=== PATIENT | male | born 1955 | race Two or more races ===

== ENCOUNTER 2022-07-10 12:11 | Inpatient (IN) | payer OTHER ==
[~2022-07-10] VITALS: Ht 167.6 cm; Wt 87.2 kg
[2022-07-10] MEDS ORDERED: ASPirin 325 MG TAB PO ONE (12:15)
[2022-07-10 12:50] LABS: Basophils # (auto) 0.1 10 ^3/uL (0-0.2); Basophils % (auto) 0.9 % (0.0-2.0); Eosinophils # (auto) 0.3 10 ^3/uL (0-0.8); Eosinophils % (auto) 3.9 % (0.0-7.0); Hematocrit 44.1 % (41.0-53.0); Hemoglobin 14.3 g/dL (13.5-17.5); Lymphocytes # (auto) 2.9 10 ^3/uL (0.4-5.4); Lymphocytes % (auto) 38.8 % (10.0-50.0); Mean Corpuscular Hemoglobin 28.5 pg (28.0-32.0); Mean Corpuscular Hgb Conc. 32.3 g/dL (32.0-36.0); Mean Corpuscular Volume 88.1 fL (80.0-100.0); Monocytes # (auto) 0.6 10 ^3/uL (0-1.3); Monocytes % (auto) 8.2 % (0.0-12.0); Neutrophils # (auto) 3.5 10 ^3/uL (1.6-8.6); Neutrophils % (auto) 48.2 % (37.0-80.0); Nucleated Red Blood Cells % 0.1 %; Red Blood Cells 5.01 10^6/uL (4.5-5.90); Red Cell Distribution Width 14.2 % (11.8-14.3); White Blood Cell 7.4 10^3/uL (4.4-10.8)
[2022-07-10] MEDS ORDERED: NITROGLYCERIN 0.4 MG SL TAB SL ONE (13:00)
[2022-07-10 13:09] LABS: Albumin 3.8 g/dL (3.4-5.0); Calcium 8.5 mg/dL (8.5-10.1); Potassium 4.4 mmol/L (3.5-5.1)
[2022-07-10 13:11] LABS: BUN/Creatinine Ratio 17.4
[2022-07-10 13:13] LABS: Bilirubin, Total 0.5 mg/dL (0.2-1.0); Total Protein 7.3 g/dL (6.4-8.2)
[2022-07-10] MEDS ORDERED: ONDANSETRON HCL 4 MG/2 ML VIAL IV PRN ×2 (14:30→16:30)
[2022-07-10] MEDS ORDERED: NITROGLYCERIN 0.4 MG SL TAB SL PRN ×3 (14:30→17:45)
[2022-07-10] MEDS ORDERED: MORPHINE SULFATE INJ 2 MG/ml SYRG IV PRN ×3 (14:30→14:45)
[2022-07-10] MEDS ORDERED: MORPHINE SULFATE 4 MG/ML SYR/VIAL IV PRN (16:30)
[2022-07-10] MEDS ORDERED: PRAVASTATIN SODIUM 20 MG TAB PO SCH (22:00)
[2022-07-10] MEDS ORDERED: METOPROLOL TARTRATE 25 MG TAB PO SCH (22:00)
[2022-07-11 03:30] LABS: Basophils # (auto) 0 10 ^3/uL (0-0.2); Basophils % (auto) 0.7 % (0.0-2.0); Eosinophils # (auto) 0.3 10 ^3/uL (0-0.8); Eosinophils % (auto) 4.8 % (0.0-7.0); Hematocrit 39.6 % (41.0-53.0); Lymphocytes # (auto) 2.4 10 ^3/uL (0.4-5.4); Lymphocytes % (auto) 36.5 % (10.0-50.0); Mean Corpuscular Hemoglobin 28.8 pg (28.0-32.0); Mean Corpuscular Volume 87.3 fL (80.0-100.0); Monocytes # (auto) 0.6 10 ^3/uL (0-1.3); Monocytes % (auto) 9.1 % (0.0-12.0); Neutrophils # (auto) 3.2 10 ^3/uL (1.6-8.6); Neutrophils % (auto) 48.9 % (37.0-80.0); Red Blood Cells 4.53 10^6/uL (4.5-5.90); Red Cell Distribution Width 14.2 % (11.8-14.3); White Blood Cell 6.5 10^3/uL (4.4-10.8)
[2022-07-11 03:43] LABS: Albumin 3.4 g/dL (3.4-5.0); Calcium 8.1 mg/dL (8.5-10.1); Potassium 4.2 mmol/L (3.5-5.1)
[2022-07-11 03:44] LABS: BUN/Creatinine Ratio 21.5
[2022-07-11 03:47] LABS: Bilirubin, Total 0.5 mg/dL (0.2-1.0); Total Protein 6.4 g/dL (6.4-8.2)
[2022-07-11 06:23] VITALS: BP 130/74
[2022-07-11] MEDS ORDERED: PRAV20TA3 PO (09:15)
[2022-07-11] MEDS ORDERED: ASPI-325 PO (09:15)
[2022-07-11] MEDS ORDERED: MET25T PO (09:15)
[2022-07-11] MEDS ORDERED: ASPirin 81 mg TAB PO SCH (10:00)
== END 2022-07-11 09:48 | disposition home or self-care (01) | DRG 313 ==
LOC: ER 12:13 → TELE 16:28
PROVIDERS: ADMIT Internal Medicine; ATTEND Internal Medicine
DX: R07.89 Other chest pain (principal); E78.00 Pure hypercholesterolemia, unspecified; E66.9 Obesity, unspecified; I10 Essential (primary) hypertension; R73.03 Prediabetes; Z20.822 Contact with and (suspected) exposure to COVID-19; Z68.31 Body mass index [BMI] 31.0-31.9, adult; Z85.038 Personal history of other malignant neoplasm of large intestine
CPT/HCPCS: 36415; 71045; 80053; 83880; 84484; 85025; 87426; 93005; G0378

== ENCOUNTER 2023-03-22 07:07 | Emergency (ER) | payer OTHER, MEDICAID ==
[~2023-03-22] VITALS: Ht 165.1 cm; Wt 89.0 kg
[~2023-03-22 07:07] MED LIST: ASPI-325 PO; MET25T PO; PRAV20TA3 PO
[2023-03-22] MEDS ORDERED: CARI250T PO (09:00)
[2023-03-22] MEDS ORDERED: KETOROLAC TROMETH 60MG/2ML VIAL IM ONE (09:15)
[2023-03-22] MEDS ORDERED: cloNIDine HCL 0.1 MG TAB PO ONE (09:15)
[2023-03-22] MEDS ORDERED: CARISOPRODOL 350 MG TAB PO ONE (09:15)
[2023-03-22 10:28] VITALS: BP 137/78
== END 2023-03-22 10:59 | disposition home or self-care (01) ==
LOC: ER 07:07
DX: S33.5XXA Sprain of ligaments of lumbar spine, initial encounter (principal); M54.59 Other low back pain; I10 Essential (primary) hypertension; Z79.899 Other long term (current) drug therapy; Z79.02 Long term (current) use of antithrombotics/antiplatelets; W18.39XA Other fall on same level, initial encounter; Y93.89 Activity, other specified; Y92.89 Other specified places as the place of occurrence of the external cause; Y99.8 Other external cause status
CPT/HCPCS: 72131; 74176; 96372; 99285; J1885

== ENCOUNTER 2023-06-14 23:24 | Emergency (ER) | payer OTHER, MEDICAID ==
[~2023-06-14] VITALS: Ht 170.2 cm; Wt 86.0 kg
[~2023-06-14 23:24] MED LIST changes: +CARI250T PO
[2023-06-14 23:48] VITALS: BP 163/85; PULSE 83; RESP 20; O2SAT 98
== END 2023-06-15 03:43 | disposition left against medical advice (07) ==
LOC: ER 23:24
DX: M25.512 Pain in left shoulder (principal); Z53.21 Procedure and treatment not carried out due to patient leaving prior to being seen by health care provider
CPT/HCPCS: 73030

== ENCOUNTER 2023-07-12 12:56 | Emergency (ER) | payer OTHER, MEDICAID ==
[~2023-07-12] VITALS: Ht 170.2 cm; Wt 87.0 kg
[2023-07-12 14:45] VITALS: BP 135/81; PULSE 87; RESP 18; TEMP 97.5; O2SAT 96
[2023-07-12] MEDS ORDERED: HYDROcodone-ACET 10/325MG TAB PO ONE (14:45)
[2023-07-12] MEDS ORDERED: KETOROLAC TROMETH 60MG/2ML VIAL IM ONE (14:45)
[2023-07-12] MEDS ORDERED: HYDR-4798 PO (16:05)
[2023-07-12] MEDS ORDERED: IBUP-1455 PO (16:05)
== END 2023-07-12 16:19 | disposition home or self-care (01) ==
LOC: ER 12:56
DX: M12.811 Other specific arthropathies, not elsewhere classified, right shoulder (principal); M23.92 Unspecified internal derangement of left knee
CPT/HCPCS: 96372; 99283; J1885

== ENCOUNTER 2023-10-19 04:08 | Emergency (ER) | payer OTHER, MEDICAID ==
[~2023-10-19] VITALS: Ht 170.2 cm; Wt 91.0 kg
[~2023-10-19 04:08] MED LIST changes: +HYDR-4798 PO; +IBUP-1455 PO
[2023-10-19] MEDS ORDERED: KETOROLAC TROMETH 30 MG/ML 1ML VIAL IM ONE (06:45)
[2023-10-19 08:04] VITALS: TEMP 97.8
[2023-10-19 08:47] VITALS: BP 135/87; PULSE 71; RESP 15; O2SAT 95
[2023-10-19] MEDS ORDERED: NABU-72 PO (09:07)
[2023-10-19] MEDS ORDERED: METH-1181 PO (09:07)
[2023-10-19] MEDS ORDERED: PRED20TA2 PO (09:07)
== END 2023-10-19 09:17 | disposition home or self-care (01) ==
LOC: ER 04:08
DX: M25.512 Pain in left shoulder (principal); R07.81 Pleurodynia; M19.012 Primary osteoarthritis, left shoulder; I10 Essential (primary) hypertension; Z79.1 Long term (current) use of non-steroidal anti-inflammatories (NSAID); Z79.82 Long term (current) use of aspirin; Z79.899 Other long term (current) drug therapy
CPT/HCPCS: 71101; 73030; 96372; 99284; J1885

== ENCOUNTER 2024-04-19 01:27 | Emergency (ER) | payer OTHER, MEDICAID ==
[~2024-04-19] VITALS: Ht 167.6 cm; Wt 87.0 kg
[~2024-04-19 01:27] MED LIST changes: +METH-1181 PO; +NABU-72 PO; +PRED20TA2 PO
[2024-04-19 02:04] LABS: Basophils # (auto) 0.1 10 ^3/uL (0-0.2); Basophils % (auto) 0.6 % (0.0-2.0); Eosinophils # (auto) 0.2 10 ^3/uL (0-0.8); Eosinophils % (auto) 1.9 % (0.0-7.0); Hematocrit 41.3 % (41.0-53.0); Hemoglobin 14.1 g/dL (13.5-17.5); Lymphocytes # (auto) 3.4 10 ^3/uL (0.4-5.4); Lymphocytes % (auto) 31.2 % (10.0-50.0); Mean Corpuscular Hemoglobin 29.3 pg (28.0-32.0); Mean Corpuscular Hgb Conc. 34.1 g/dL (32.0-36.0); Mean Corpuscular Volume 85.7 fL (80.0-100.0); Monocytes # (auto) 0.9 10 ^3/uL (0-1.3); Monocytes % (auto) 8.3 % (0.0-12.0); Neutrophils # (auto) 6.3 10 ^3/uL (1.6-8.6); Red Blood Cells 4.82 10^6/uL (4.5-5.90); White Blood Cell 10.9 10^3/uL (4.4-10.8)
[2024-04-19 02:14] LABS: Alanine Aminotransferase 28 U/L (7-40); Albumin 4.5 g/dL (3.2-4.8); Alkaline Phosphatase 60 U/L (46-116); Anion Gap 8 (5-15); Aspartate Aminotransferase 11 U/L (13-40); BUN/Creatinine Ratio 14.3 (10.0-20.0); Bilirubin, Total 0.5 mg/dL (0.2-1.0); Blood Urea Nitrogen 10 mg/dL (9-23); Calcium 9.6 mg/dL (8.7-10.4); Carbon Dioxide 23 mmol/L (20-30); Chloride 103 mmol/L (98-107); Glucose 203 mg/dL (74-106); Potassium 4.3 mmol/L (3.5-5.1); Sodium 134 mmol/L (136-145)
[2024-04-19] MEDS ORDERED: HYDR50TA32 PO (03:31)
[2024-04-19] MEDS: LORazepam 0.5 MG TAB PO ONE (04:49)
[2024-04-19 05:04] VITALS: PULSE 65; RESP 20; O2SAT 95
[2024-04-19 05:10] VITALS: BP 141/66; PULSE 65; RESP 20; TEMP 98.5; O2SAT 95
== END 2024-04-19 05:31 | disposition home or self-care (01) ==
LOC: ER 01:27
DX: R07.2 Precordial pain (principal); R06.02 Shortness of breath; F32.A Depression, unspecified; E11.9 Type 2 diabetes mellitus without complications; I10 Essential (primary) hypertension; Z85.038 Personal history of other malignant neoplasm of large intestine; Z79.899 Other long term (current) drug therapy
CPT/HCPCS: 36415; 71045; 80053; 83880; 84484; 85025; 93005

== ENCOUNTER 2024-04-21 01:12 | Emergency (ER) | payer OTHER, MEDICAID ==
[~2024-04-21] VITALS: Ht 167.6 cm; Wt 88.6 kg
[~2024-04-21 01:12] MED LIST changes: +HYDR50TA32 PO
[2024-04-21 01:41] VITALS: BP 132/72; PULSE 57; RESP 16; O2SAT 95
[2024-04-21] MEDS ORDERED: SODIUM CHLORIDE 0.9% 1,000 ML IV ONE (02:00)
[2024-04-21] MEDS ORDERED: MORPHINE SULFATE 4 MG/ML SYR/VIAL IV ONE (02:00)
[2024-04-21] MEDS ORDERED: ONDANSETRON HCL 4 MG/2 ML VIAL IV ONE (02:00)
[2024-04-21 02:27] LABS: Basophils # (auto) 0.1 10 ^3/uL (0-0.2); Basophils % (auto) 0.6 % (0.0-2.0); Eosinophils # (auto) 0.3 10 ^3/uL (0-0.8); Eosinophils % (auto) 2.8 % (0.0-7.0); Hemoglobin 15.1 g/dL (13.5-17.5); Lymphocytes # (auto) 4.5 10 ^3/uL (0.4-5.4); Lymphocytes % (auto) 42.7 % (10.0-50.0); Mean Corpuscular Hemoglobin 29.6 pg (28.0-32.0); Mean Corpuscular Hgb Conc. 34.4 g/dL (32.0-36.0); Mean Corpuscular Volume 86.3 fL (80.0-100.0); Monocytes # (auto) 0.7 10 ^3/uL (0-1.3); Neutrophils % (auto) 46.9 % (37.0-80.0); Nucleated Red Blood Cells % 0.1 %; Red Cell Distribution Width 14.1 % (11.8-14.3); White Blood Cell 10.6 10^3/uL (4.4-10.8)
[2024-04-21 02:38] LABS: Alanine Aminotransferase 33 U/L (7-40); Albumin 4.6 g/dL (3.2-4.8); Alkaline Phosphatase 62 U/L (46-116); Anion Gap 9 (5-15); Aspartate Aminotransferase 15 U/L (13-40); BUN/Creatinine Ratio 13.2 (10.0-20.0); Bilirubin, Total 0.4 mg/dL (0.2-1.0); Blood Urea Nitrogen 9 mg/dL (9-23); Calcium 9.9 mg/dL (8.7-10.4); Carbon Dioxide 25 mmol/L (20-30); Chloride 103 mmol/L (98-107); Glucose 125 mg/dL (74-106); Potassium 4.1 mmol/L (3.5-5.1); Sodium 137 mmol/L (136-145); Total Protein 7.4 g/dL (5.7-8.2)
[2024-04-21] MEDS ORDERED: ACETAMINOPHEN 325 MG TAB PO ONE (02:45)
[2024-04-21] MEDS ORDERED: traMADol HCL 50 MG TAB PO ONE (02:45)
[2024-04-21] MEDS ORDERED: IOHEXOL 300 MG/ML 100ML BOTTLE IJ ONE (03:20)
== END 2024-04-21 02:50 | disposition left against medical advice (07) ==
LOC: ER 01:12
DX: K62.5 Hemorrhage of anus and rectum (principal); F41.9 Anxiety disorder, unspecified; F32.A Depression, unspecified; E11.9 Type 2 diabetes mellitus without complications; I10 Essential (primary) hypertension; Z79.899 Other long term (current) drug therapy
CPT/HCPCS: 36415; 80053; 85025

== ENCOUNTER 2024-06-10 22:37 | Emergency (ER) | payer OTHER, MEDICAID ==
[~2024-06-10] VITALS: Ht 167.6 cm; Wt 86.0 kg
[2024-06-11] MEDS ORDERED: IBUP-1456 PO (01:05)
[2024-06-11] MEDS ORDERED: HYDR-4798 PO (01:05)
[2024-06-11] MEDS: KETOROLAC TROMETH 60MG/2ML VIAL IM ONE (01:46)
[2024-06-11] MEDS: ACETAMINOPHEN 500 MG TAB PO ONE (01:47)
[2024-06-11 01:50] VITALS: BP 124/69; PULSE 62; RESP 16; TEMP 98.3; O2SAT 98
== END 2024-06-11 01:52 | disposition home or self-care (01) ==
LOC: ER 22:37
DX: R51.9 Headache, unspecified (principal); I10 Essential (primary) hypertension; E11.9 Type 2 diabetes mellitus without complications; F41.9 Anxiety disorder, unspecified; F32.9 Major depressive disorder, single episode, unspecified; Z98.890 Other specified postprocedural states; Z79.899 Other long term (current) drug therapy
CPT/HCPCS: 70450; 96372; 99285; J1885

== ENCOUNTER 2024-08-11 21:33 | Emergency (ER) | payer OTHER, MEDICAID ==
[~2024-08-11] VITALS: Ht 167.6 cm; Wt 90.4 kg
[~2024-08-11 21:33] MED LIST changes: +IBUP-1456 PO
--- NOTE | 2024-08-11 22:23 | ED.PDOC ---
History of Present Illness HPI Comments 69-year-old male who came to ER or shortness of breath. Patient claims that he is being followed and poisoned by government agents, stating that they are placing noxious fumes, gas inside his car. States while using the internet, he gets shocked on his chest. And that government agents are out chasing him. He denies any use of prohibited drugs. Chief Complaint: Shortness of Breath Time Seen by MD: 22:23 Reviewed Notes: Nurses Notes Allergies: Coded Allergies: No Known Drug Allergy (Verified Allergy, Unknown, 07/10/22) Home Meds Active Scripts Aripiprazole (Abilify) 2 Mg Tab, 1 TAB PO DAILY, #30 TAB 2 Refills Prov:SANDOR JACKSON MD 08/12/24 Hydrocodone-Acetaminophen (Hydrocodone Bitartrate/AC 10-325 mg) 1 Tab Tab, 1 TAB PO Q12HP PRN, #4 TAB Prov:SHELLIE LAMB PAC 06/11/24 Ibuprofen (Ibuprofen) 800 Mg Tab, 1 TAB PO Q8HP PRN, #20 TAB 0 Refills Prov:SHELLIE LAMB PAC 06/11/24 Hydroxyzine HCl (Hydroxyzine Hydrochloride) 50 Mg Tab, 50 MG PO Q6HP PRN, #30 TAB prn anxiety Prov:SLIM SCHROEDER MD 04/19/24 Prednisone (Prednisone) 20 Mg Tab, 40 MG PO DAILY for 5 Days, #10 MG Prov:JACOB VICTORIA [employer]OVASCULAR [employer]GICAL TECH 10/19/23 Nabumetone (Nabumetone) 500 Mg Tab, 1 TAB PO BID PRN, #20 TAB Prov:JACOB VICTORIA 10/19/23 Methocarbamol (Methocarbamol) 500 Mg Tab, 500 MG PO TIDPRN PRN, #20 TAB Prov:JACOB VICTORIAP 10/19/23 Hydrocodone-Acetaminophen (Hydrocodone Bitartrate/AC 10-325 mg) 1 Tab Tab, 1 TAB PO Q8HP PRN, #15 TAB Prov:SHELLIE LAMB PAC 07/12/23 Ibuprofen Micronized (Ibuprofen) 800 Mg Tab, 800 MG PO Q8HP PRN, #30 TAB Prov:SHELLIE LAMB PAC 07/12/23 Carisoprodol (Soma) 250 Mg Tab, 250 MG PO DAILY for 5 Days, #5 TAB Prov:LAUREANO ODONNELL MD 03/22/23 Pravastatin Sodium (PRAVACHOL TABLET) 20 Mg Tb, 40 MG PO HS, #90 TAB Prov:EFFIE GARAY MD 07/11/22 Metoprolol Tartrate (Lopressor) 25 Mg Tb, 12.5 MG PO BID, #60 TAB Prov:EFFIE GARAY MD 07/11/22 Aspirin (Aspirin Low Dose) 81 Mg Tab, 81 MG PO DAILY, #90 TAB Prov:EFFIE GARAY MD 07/11/22 Information Source: Patient Mode of Arrival: Ambulatory Severity: Moderate Timing: Days Duration: Intermittent Past Medical History PAST MEDICAL HISTORY: Anxiety, Cancer, Depression, DM, High Lipids, HTN Surgical History: Hernia Repair Family History Family History: Reviewed,noncontributory to illness Social History Smoker: Non-Smoker Alcohol: Occasionally Drugs: Denies Drug Use Lives In: Home Constitutional: denies: chills, diaphoresis, fatigue, fever, malaise, sweats, weakness, others EENTM: denies: blurred vision, double vision, ear bleeding, ear discharge, ear drainage, ear pain, ear ringing, eye pain, eye redness, hearing loss, mouth pain, mouth swelling, nasal discharge, nose bleeding, nose congestion, nose pain, photophobia, tearing, throat pain, throat swelling, voice changes, others Respiratory: denies: cough, hemoptysis, orthopnea, SOB at rest, shortness of breath, SOB with excertion, stridor, wheezing, others Cardiovascular: denies: chest pain, dizzy spells, diaphoresis, Dyspnea on exertion, edema, irregular heart beat, left arm pain, lightheadedness, palpitations, PND, syncope, others Gastrointestinal: denies: abdomen distended, abdominal pain, blood streaked bowels, constipated, diarrhea, dysphagia, difficulty swallowing, hematemesis, me yani, nausea, poor appetite, poor fluid intake, rectal bleeding, rectal pain, vomiting, others Genitourinary: denies: burning, dysuria, flank pain, frequency, hematuria, incontinence, penile discharge, penile sore, pain, testicle pain, testicle swelling, urgency, others Neurological: denies: dizziness, fainting, headache, left sided numbness, left sided weakness, numbness, paresthesia, pre-existing deficit, right sided numbness, right sided weakness, seizure, speech problems, tingling, tremors, weakness, others Musculoskeletal: denies: back pain, gout, joint pain, joint swelling, muscle pain, muscle stiffness, neck pain, others Integumetry: denies: bruises, change in color, change in hair/nails, dryness, laceration, lesions, lumps, rash, wounds, others Allergic/Immunocompromised: denies: Difficulty Healing, Frequent Infections, Hives, Itching, others Hematologic/Lymphatic: denies: anemia, blood clots, easy bleeding, easy bruising, swollen glands, others Endocrine: denies: excessive hunger, excessive sweating, excessive thirst, excessive urination, flushing, intolerance to cold, intolerance to heat, unexplained weight gain, unexplained weight loss, others Psychiatric: denies: anxiety, bipolar disorder, depression, hopeless, panic disorder, schizophrenia, sleepless, suicidal, others Physical Exam General Appearance: No Apparent Distress HEENT: Normal ENT Inspection, Pharynx Normal, TMs Normal Neck: Full Range of Motion, Non-Tender, Normal, Normal Inspection Respiratory: Chest Non-Tender, Lungs Clear, No Accessory Muscle Use, No Respiratory Distress, Normal Breath Sounds Cardiovascular: No Edema, No JVD, No Murmur, No Gallop, Normal Peripheral Pulses, Regular Rate/Rhythm Breast Exam: Deferred Gastrointestinal: No Organomegaly, Non Tender, No Pulsatile Mass, Normal Bowel Sounds, Soft Genitalia: Deferred Pelvic: Deferred Rectal: Deferred Extremities: No calf tenderness, Normal capillary refill, Normal inspection, Normal range of motion, Non-tender, No pedal edema Musculoskeletal : Apperance: Normal Neurologic: Alert, cell support operator II-XII nml as Tested, No Motor Deficits, No Sensory Deficits, Other (Depressive disorder) Cerebellar Function: Normal Reflexes: Normal Skin: Dry, Normal Color, Warm Lymphatic: No Adenopathy Was a procedure done? Was a procedure done?: No Differential Dx Considerations may include: Anemia, electrolyte imbalance, anxiety, substance abuse, psychosis, schizophrenia X-Ray, Labs, Meds, VS Vital Signs Date Time Temp Pulse Resp B/P (MAP) Pulse Ox O2 Delivery O2 Flow Rate FiO2 08/12/24 08:08 64 13 95 Room Air* 0 21 08/12/24 08:07 97.3 64 13 112/61 (78) 95 97.3 08/12/24 06:00 75 13 109/58 (75) 99 08/12/24 04:00 71 08/12/24 04:00 75 10 104/83 (90) 95 08/12/24 02:00 69 22 150/80 (103) 96 08/12/24 00:00 98.7 65 15 149/77 (101) 95 98.7 08/11/24 22:30 Room Air* 0 21 08/11/24 22:07 70 08/11/24 22:05 98.2 74 20 156/77 (103) 98 Lab Test 08/12/24 00:10 08/11/24 22:14 08/11/24 22:08 Range/Units Urine Color Straw Yellow Urine Clarity Clear Clear Urine pH 5.0 5.0-9.0 Urine Specific [place] 1.005 1.001-1.035 Urine Protein Negative Negative Urine Ketones Negative Negative Urine Blood Negative Negative /uL Urine Nitrite Negative Negative Urine Bilirubin Negative Negative Urine Urobilinogen Normal Negative mg/dL Urine Leukocyte Esterase Negative Negative /uL Urine RBC 1 0 - 3 /hpf Urine WBC 1 0 - 3 /hpf Urine Squamous Epithelial Cells None seen <5 /hpf Urine Bacteria Few H None Seen /hpf Urine Sperm Present None Seen /hpf Urine Glucose Normal Normal mg/dL Urine Opiates Screen Neg NEGATIVE Urine Fentanyl Screen Neg NEGATIVE Urine Barbiturates Screen Neg NEGATIVE Urine Phencyclidine Screen Neg NEGATIVE Urine Amphetamines Screen Neg NEGATIVE Urine Benzodiazepines Screen Neg NEGATIVE Urine Cocaine Screen Neg NEGATIVE Urine Cannabinoids Screen Neg NEGATIVE White Blood Count 8.3 4.4-10.8 10^3/uL Red Blood Count 4.96 4.5-5.90 10^6/uL Hemoglobin 14.4 13.5-17.5 g/dL Hematocrit 42.7 41.0-53.0 % Mean Corpuscular Volume 86.1 80.0-100.0 fL Mean Corpuscular Hemoglobin 29.1 28.0-32.0 pg Mean Corpuscular Hemoglobin Concent 33.7 32.0-36.0 g/dL Red Cell Distribution Width 14.3 11.8-14.3 % Platelet Count 276 140-450 10^3/uL Mean Platelet Volume 7.3 6.9-10.8 fL Neutrophils (%) (Auto) 52.1 37.0-80.0 % Lymphocytes (%) (Auto) 34.9 10.0-50.0 % Monocytes (%) (Auto) 8.4 0.0-12.0 % Eosinophils (%) (Auto) 4.0 0.0-7.0 % Basophils (%) (Auto) 0.6 0.0-2.0 % Neutrophils # (Auto) 4.3 1.6-8.6 10 ^3/uL Lymphocytes # (Auto) 2.9 0.4-5.4 10 ^3/uL Monocytes # (Auto) 0.7 0-1.3 10 ^3/uL Eosinophils # (Auto) 0.3 0-0.8 10 ^3/uL Basophils # (Auto) 0.1 0-0.2 10 ^3/uL Nucleated Red Blood Cells 0.1 % Sodium Level 139 136-145 mmol/L Potassium Level 3.7 3.5-5.1 mmol/L Chloride Level 105 98-107 mmol/L Carbon Dioxide Level 24 20-31 mmol/L Anion Gap 10 5-15 Blood Urea Nitrogen 8 L 9-23 mg/dL Creatinine 0.68 L 0.700-1.30 mg/dL Glomerular Filtration Rate Calc 102 >90 mL/min BUN/Creatinine Ratio 11.8 10.0-20.0 Serum Glucose 140 H 74-106 mg/dL Calcium Level 9.9 8.7-10.4 mg/dL Salicylates Level < 3.0 -30 mg/dL Acetaminophen Level < 2.0 L 10.0-20.0 UG/ML Plasma/Serum Blood Alcohol < 3.0 <10 mg/dL POC Glucose 139 H 70-106 mg/dl Current Medications Medications (Trade) Dose Ordered Sig/Yovanny Route Start Time Stop Time Status Last Admin Haloperidol Lactate (Haldol) 10 mg ONCE ONCE IM 08/12/24 04:30 08/12/24 04:31 DC 08/12/24 04:26 The patient's CBC is within normal limits The chemistry panel is within normal limits The salicylate level and acetaminophen level are negative The alcohol level is negative The patient was initially given Haldol 10 mg IM The urine tox is negative At this time, we did have the telemedicine psychiatrist evaluate the patient They stated that the patient is stable to be discharged and is not meeting 5150 criteria The patient was given a prescription of Abilify per the psychiatrist The patient will return to the emergency department's condition worsens. Time of 1ST Reevaluation: 22:17 Reevaluation 1ST: Unchanged Patient Education/Counseling: Diagnosis, Treatment, Prognosis, Need For Follow Up Family Education/Counseling: No Family Present Departure 1 Departure Time of Disposition: 10:10 Impression: Primary Impression: Depressive disorder Disposition: 01 HOME / SELF CARE / HOMELESS Condition: Fair e-Prescriptions Aripiprazole (Abilify) 2 Mg Tab 1 TAB PO DAILY, #30 TAB 2 Refills Prov: SANDOR JACKSON MD 08/12/24 Discharged With: Self Critical Care Note Critical Care Time?: No Stability Stability form required: No Heart Score Heart Score: Heart Score Response (Comments) Value History N/A 0 EKG N/A 0 Age N/A 0 Risk Factors N/A 0 Troponin N/A 0 Total 0 I personally scribed for PEEWEE GRIFFIN MD ([email or web address]) on 08/11/24 at 22:23. Electronically submitted by Omero Weston ([facility]). PEEWEE GRIFFIN MD Aug 11, 2024 22:23 SANDOR JACKSON MD Aug 12, 2024 10:11
[2024-08-11 22:31] LABS: Basophils # (auto) 0.1 10 ^3/uL (0-0.2); Basophils % (auto) 0.6 % (0.0-2.0); Eosinophils # (auto) 0.3 10 ^3/uL (0-0.8); Hematocrit 42.7 % (41.0-53.0); Hemoglobin 14.4 g/dL (13.5-17.5); Lymphocytes # (auto) 2.9 10 ^3/uL (0.4-5.4); Lymphocytes % (auto) 34.9 % (10.0-50.0); Mean Corpuscular Hemoglobin 29.1 pg (28.0-32.0); Mean Corpuscular Hgb Conc. 33.7 g/dL (32.0-36.0); Mean Corpuscular Volume 86.1 fL (80.0-100.0); Monocytes # (auto) 0.7 10 ^3/uL (0-1.3); Monocytes % (auto) 8.4 % (0.0-12.0); Neutrophils # (auto) 4.3 10 ^3/uL (1.6-8.6); Neutrophils % (auto) 52.1 % (37.0-80.0); Nucleated Red Blood Cells % 0.1 %; Platelet Count (auto) 276 10^3/uL (140-450); Red Blood Cells 4.96 10^6/uL (4.5-5.90); Red Cell Distribution Width 14.3 % (11.8-14.3); White Blood Cell 8.3 10^3/uL (4.4-10.8)
[2024-08-11 22:41] LABS: Chloride 105 mmol/L (98-107); Potassium 3.7 mmol/L (3.5-5.1); Sodium 139 mmol/L (136-145)
[2024-08-11 22:42] LABS: Anion Gap 10 (5-15); Calcium 9.9 mg/dL (8.7-10.4); Carbon Dioxide 24 mmol/L (20-31)
[2024-08-11 22:47] LABS: BUN/Creatinine Ratio 11.8 (10.0-20.0); Blood Urea Nitrogen 8 mg/dL (9-23); Glucose 140 mg/dL (74-106)
[2024-08-11 22:48] LABS: Blood Alcohol < 3.0 mg/dL (<10)
[2024-08-11 22:49] LABS: Acetaminophen < 2.0 UG/ML (10.0-20.0)
[2024-08-11 23:05] LABS: Salicylate < 3.0 mg/dL (-30)
[2024-08-12 00:27] LABS: Urine Bacteria FEW /hpf (None Seen); Urine Blood Negative /uL (Negative); Urine Clarity Clear (Clear); Urine Color Straw (Yellow); Urine Protein, UAD Negative (Negative); Urine Specific Gravity 1.005 (1.001-1.035); Urine Sperm PRESENT /hpf (None Seen); Urine Urobilinogen Normal (Negative); Urine WBC 1 /hpf (0 - 3)
[2024-08-12 01:30] LABS: Amphetamine Screen, Urine Neg (NEGATIVE); Barbiturate Scree,Urine Neg (NEGATIVE); Benzodiazephine Screen, Urine Neg (NEGATIVE); Cocaine Screen, Urine Neg (NEGATIVE); Opiate Scree,Urine Neg (NEGATIVE); Phencyclidine Screen, Urine Neg (NEGATIVE)
[2024-08-12 01:31] LABS: Cannabinoid Screen, Urine Neg (NEGATIVE)
[2024-08-12] MEDS: HALOPERIDOL LACTATE 5 MG/ML INJ VIAL IM ONE (04:26)
[2024-08-12 08:07] VITALS: BP 112/61; TEMP 97.3
[2024-08-12 08:08] VITALS: PULSE 64; RESP 13; O2SAT 95
--- NOTE | 2024-08-12 09:54 | DVHINCON2 ---
Date of service: Aug 12, [address] Emile Burton Reason for Consultation Medication management and disposition. History of Present Illness Chief complaint: "Because I am very anxious, stressed because of audit by [employer]". History of present illness: This is a 69-year-old male who was seen for evaluation via telepsychiatry. Patient was seen with the help of a [place]- speaking RN. Patient was presenting paranoid and delusional and stated "I was intoxicated by a gas as a part of audit by audit company of [employer]". He reported that he is feeling depressed, sad and stressed because of this is ordered. He reported having trouble sleeping. He denied feeling hopeless or worthless. He reported his appetite is good. He denied any suicidal or homicidal ideation. He denied any auditory or visual hallucination. Past psychiatric history: Patient denied any previous inpatient psychiatric hospitalization. Patient reported that he has been treated for depression. Later on he also reported that he has been prescribed Abilify in the past. He denied any suicide attempts in the past. Past Medical History As per history and physical. Past Surgical History As per history and physical. Family History Reported that his son has schizophrenia. Social History Patient is and has nine children. Patient is retired. Substance use: Patient reported using alcohol Allergies: Coded Allergies: No Known Drug Allergy (Verified Allergy, Unknown, 07/10/22) Home Meds Active Scripts Hydrocodone-Acetaminophen (Hydrocodone Bitartrate/AC 10-325 mg) 1 Tab Tab, 1 TAB PO Q12HP PRN, #4 TAB Prov:SHELLIE LAMB PAC 06/11/24 Ibuprofen (Ibuprofen) 800 Mg Tab, 1 TAB PO Q8HP PRN, #20 TAB 0 Refills Prov:SHELLIE LAMB PAC 06/11/24 Hydroxyzine HCl (Hydroxyzine Hydrochloride) 50 Mg Tab, 50 MG PO Q6HP PRN, #30 TAB prn anxiety Prov:SLIM SCHROEDER MD 04/19/24 Prednisone (Prednisone) 20 Mg Tab, 40 MG PO DAILY for 5 Days, #10 MG Prov:JACOB VICTORIA 10/19/23 Nabumetone (Nabumetone) 500 Mg Tab, 1 TAB PO BID PRN, #20 TAB Prov:JACOB VICTORIA 10/19/23 Methocarbamol (Methocarbamol) 500 Mg Tab, 500 MG PO TIDPRN PRN, #20 TAB Prov:JACOB VICTORIA [employer] 10/19/23 Hydrocodone-Acetaminophen (Hydrocodone Bitartrate/AC 10-325 mg) 1 Tab Tab, 1 TAB PO Q8HP PRN, #15 TAB Prov:SHELLIE LAMB PAC 07/12/23 Ibuprofen Micronized (Ibuprofen) 800 Mg Tab, 800 MG PO Q8HP PRN, #30 TAB Prov:SHELLIE LAMB PAC 07/12/23 Carisoprodol (Soma) 250 Mg Tab, 250 MG PO DAILY for 5 Days, #5 TAB Prov:LAUREANO ODONNELL MD 03/22/23 Pravastatin Sodium (PRAVACHOL TABLET) 20 Mg Tb, 40 MG PO HS, #90 TAB Prov:EFFIE GARAY MD 07/11/22 Metoprolol Tartrate (Lopressor) 25 Mg Tb, 12.5 MG PO BID, #60 TAB Prov:EFFIE GARAY MD 07/11/22 Aspirin (Aspirin Low Dose) 81 Mg Tab, 81 MG PO DAILY, #90 TAB Prov:EFFIE GARAY MD 07/11/22 Review of Systems Review of systems is negative except HPI. Vital Signs Vital Signs Date Time Temp Pulse Resp B/P (MAP) Pulse Ox O2 Delivery O2 Flow Rate FiO2 08/12/24 08:08 64 13 95 Room Air* 0 21 08/12/24 08:07 97.3 112/61 (78) 97.3 Physical Exam Mental status examination: This is a 69-year-old male who appears to be of his stated age. Patient was cooperative with the interview. His speech is regular rate and rhythm. He describes mood as "overall we feel good, I feel stressed because of current situation" and his affect is restricted. He denied any suicidal or homicidal ideation. He denied any auditory or visual hallucination. His thought processes circumstantial, paranoid and delusional. He is oriented to time, place and person. His attention and concentration slightly impaired. His memory and language intact. Her judgment and insight is limited. His impulse control is limited. His fund of knowledge is intact. Labs/Diagnostic Data Labs Test 08/12/24 00:10 08/11/24 22:14 08/11/24 22:08 Range/Units Urine Color Straw Yellow Urine Clarity Clear Clear Urine pH 5.0 5.0-9.0 Urine Specific [place] 1.005 1.001-1.035 Urine Protein Negative Negative Urine Ketones Negative Negative Urine Blood Negative Negative /uL Urine Nitrite Negative Negative Urine Bilirubin Negative Negative Urine Urobilinogen Normal Negative mg/dL Urine Leukocyte Esterase Negative Negative /uL Urine RBC 1 0 - 3 /hpf Urine WBC 1 0 - 3 /hpf Urine Squamous Epithelial Cells None seen <5 /hpf Urine Bacteria Few H None Seen /hpf Urine Sperm Present None Seen /hpf Urine Glucose Normal Normal mg/dL Urine Opiates Screen Neg NEGATIVE Urine Fentanyl Screen Neg NEGATIVE Urine Barbiturates Screen Neg NEGATIVE Urine Phencyclidine Screen Neg NEGATIVE Urine Amphetamines Screen Neg NEGATIVE Urine Benzodiazepines Screen Neg NEGATIVE Urine Cocaine Screen Neg NEGATIVE Urine Cannabinoids Screen Neg NEGATIVE White Blood Count 8.3 4.4-10.8 10^3/uL Red Blood Count 4.96 4.5-5.90 10^6/uL Hemoglobin 14.4 13.5-17.5 g/dL Hematocrit 42.7 41.0-53.0 % Mean Corpuscular Volume 86.1 80.0-100.0 fL Mean Corpuscular Hemoglobin 29.1 28.0-32.0 pg Mean Corpuscular Hemoglobin Concent 33.7 32.0-36.0 g/dL Red Cell Distribution Width 14.3 11.8-14.3 % Platelet Count 276 140-450 10^3/uL Mean Platelet Volume 7.3 6.9-10.8 fL Neutrophils (%) (Auto) 52.1 37.0-80.0 % Lymphocytes (%) (Auto) 34.9 10.0-50.0 % Monocytes (%) (Auto) 8.4 0.0-12.0 % Eosinophils (%) (Auto) 4.0 0.0-7.0 % Basophils (%) (Auto) 0.6 0.0-2.0 % Neutrophils # (Auto) 4.3 1.6-8.6 10 ^3/uL Lymphocytes # (Auto) 2.9 0.4-5.4 10 ^3/uL Monocytes # (Auto) 0.7 0-1.3 10 ^3/uL Eosinophils # (Auto) 0.3 0-0.8 10 ^3/uL Basophils # (Auto) 0.1 0-0.2 10 ^3/uL Nucleated Red Blood Cells 0.1 % Sodium Level 139 136-145 mmol/L Potassium Level 3.7 3.5-5.1 mmol/L Chloride Level 105 98-107 mmol/L Carbon Dioxide Level 24 20-31 mmol/L Anion Gap 10 5-15 Blood Urea Nitrogen 8 L 9-23 mg/dL Creatinine 0.68 L 0.700-1.30 mg/dL Glomerular Filtration Rate Calc 102 >90 mL/min BUN/Creatinine Ratio 11.8 10.0-20.0 Serum Glucose 140 H 74-106 mg/dL Calcium Level 9.9 8.7-10.4 mg/dL Salicylates Level < 3.0 -30 mg/dL Acetaminophen Level < 2.0 L 10.0-20.0 UG/ML Plasma/Serum Blood Alcohol < 3.0 <10 mg/dL POC Glucose 139 H 70-106 mg/dl Assessment Patient with a diagnosis of depressive disorder not otherwise specified and psychotic disorder not otherwise specified. Patient reported that he has taken Abilify in the past. Plan/Recommendation Patient does not meet the criteria for 5150 hold and is cleared for discharge from a psychiatric standpoint. I will recommend to send him with a prescription of Abilify 2.5 mg p.o. daily. Care was coordinated with the patient and his RN. Plan discussed with: Patient MARIAM CORDOVA MD Aug 12, 2024 09:54
[2024-08-12] MEDS ORDERED: ARIP2TAB PO (10:12)
--- NOTE | 2024-08-13 06:35 | ECG ---
[facility] Test Date: 2024-08-11 Test Time: 22:07:13 Pat Name: MINERVA PEOPLES Department: ER Room: Gender: M Hand Compositor: GALINDO : 1955 Requested By: PEEWEE GRIFFIN Order Number: [id number] Reading MD: Measurements Intervals [place] Rate: 70 P: 46 [place]: 185 QRS: 61 QRSD: 126 T: 36 QT: 410 QTc: 443 Interpretive Statements Sinus rhythm IVCD, consider atypical RBBB Please click the below link to view image of tracing.
== END 2024-08-12 10:52 | disposition home or self-care (01) ==
LOC: ER 21:36
DX: F32.A Depression, unspecified (principal); F41.9 Anxiety disorder, unspecified; E11.9 Type 2 diabetes mellitus without complications; I10 Essential (primary) hypertension; Z79.52 Long term (current) use of systemic steroids; Z79.82 Long term (current) use of aspirin; Z79.899 Other long term (current) drug therapy; Z98.890 Other specified postprocedural states
CPT/HCPCS: 36415; 80048; 80307; 80320; 80329; 81001; 82962; 85025; 96372; 99285; J1630; 93005

== ENCOUNTER 2025-06-09 21:35 | Emergency (ER) | payer OTHER ==
[~2025-06-09] VITALS: Ht 170.2 cm; Wt 89.5 kg
[~2025-06-09 21:35] MED LIST changes: +ARIP2TAB PO
--- NOTE | 2025-06-10 02:53 | DVH ---
CHEST RADIOGRAPH Indication: right back pain worse w/ inspiration Technique: 2 views Comparison: 07/10/2022 FINDINGS: Lines and Tubes: None Lungs/Pleura: No focal consolidation, pleural effusion or pneumothorax. Mild scarring/atelectasis in the lung bases. Cardiomediastinum: Unremarkable. Other: No acute osseous abnormality. IMPRESSION: 1. No acute cardiopulmonary abnormality.
[2025-06-10] MEDS: ACETAMINOPHEN 500 MG TAB or CAP PO ONE (02:54)
[2025-06-10 02:56] VITALS: BP 118/78; PULSE 61; RESP 18; TEMP 98.1; O2SAT 97
[2025-06-10] MEDS ORDERED: ACETAMINOPHEN 500 MG TAB or CAP PO ONE (02:56)
[2025-06-10] MEDS ORDERED: IBUP-1454 PO (03:20)
[2025-06-10] MEDS ORDERED: ACET650T12 PO (03:20)
--- NOTE | 2025-06-10 03:21 | ED.PDOC ---
History of Present Illness HPI Comments 70-year-old Mexican-speaking male who presents with chief complaint of nonradiating, right upper back pain for over the past 2 weeks. Patient endorses on unprovoked and atraumatic onset, with the pain being constant and having no relief with [id number] Advil pain medication use. No endorsement of any weakness, numbness, tingling, or further associated symptoms. REVIEW OF SYSTEMS: General: No fever, no chills, HEENT: No neck pain, no blurred vision Cardiac: No chest pain. No palpitations. Lungs: No shortness of breath, GI: No abdominal pain, no vomiting Musculoskeletal: No joint pain , back pain Skin: No rash, no wound Neuro: No headache, no dizziness, no syncope PHYSICAL EXAM: General: Awake, alert and oriented. No acute distress. Skin: Skin in warm, dry and intact without rashes or lesions. HEENT: The head is normocephalic and atraumatic. Conjunctivae are clear without exudates or hemorrhage. Sclera is non-icteric. Neck: Normal range of motion. No JVD. Cardiac: Regular rate Respiratory: No signs of respiratory distress. No Stridor. Extremities: Upper and lower extremities are atraumatic in appearance without deformity. Musculoskeletal: No spinal tenderness or tenderness to palpation of the right upper back. Neurological: The patient is awake, alert and oriented to person, place, and time with normal speech. Speech is clear. There is no facial asymmetry. Normal gait. Psychiatric: Appropriate mood and affect. Good judgement and insight. Chief Complaint: Back Pain Time Seen by MD: 02:35 Reviewed Notes: Nurses Notes Allergies: Coded Allergies: No Known Drug Allergy (Verified Allergy, Unknown, 07/10/22) Home Meds Active Scripts Ibuprofen (Ibuprofen) 600 Mg Tab, 1 TAB PO TID for 5 Days, #15 TAB Prov:BRITT CHUN MD 06/10/25 Acetaminophen (Acetaminophen Er) 650 Mg Tab, 650 MG PO TIDPRN PRN, #15 TAB Prov:BRITT CHUN MD 06/10/25 Aripiprazole (Abilify) 2 Mg Tab, 1 TAB PO DAILY, #30 TAB 2 Refills Prov:SANDOR JACKSON MD 08/12/24 Hydrocodone-Acetaminophen (Hydrocodone Bitartrate/AC 10-325 mg) 1 Tab Tab, 1 TAB PO Q12HP PRN, #4 TAB Prov:SHELLIE LAMB [facility] 06/11/24 Ibuprofen (Ibuprofen) 800 Mg Tab, 1 TAB PO Q8HP PRN, #20 TAB 0 Refills Prov:ADONISSHELLIE RICHARDS [facility] 06/11/24 Hydroxyzine HCl (Hydroxyzine Hydrochloride) 50 Mg Tab, 50 MG PO Q6HP PRN, #30 TAB prn anxiety Prov:SLIM SCHROEDER MD 04/19/24 Prednisone (Prednisone) 20 Mg Tab, 40 MG PO DAILY for 5 Days, #10 MG Prov:JACOB VICTORIA [facility] 10/19/23 Nabumetone (Nabumetone) 500 Mg Tab, 1 TAB PO BID PRN, #20 TAB Prov:JULIENFLOYDGENEVIEVE [facility] 10/19/23 Methocarbamol (Methocarbamol) 500 Mg Tab, 500 MG PO TIDPRN PRN, #20 TAB Prov:JACOB VICTORIA [facility] 10/19/23 Hydrocodone-Acetaminophen (Hydrocodone Bitartrate/AC 10-325 mg) 1 Tab Tab, 1 TAB PO Q8HP PRN, #15 TAB Prov:SHELLIE LAMB [facility] 07/12/23 Ibuprofen Micronized (Ibuprofen) 800 Mg Tab, 800 MG PO Q8HP PRN, #30 TAB Prov:SHELLIE LAMB [facility] 07/12/23 Carisoprodol (Soma) 250 Mg Tab, 250 MG PO DAILY for 5 Days, #5 TAB Prov:LAUREANO ODONNELL MD 03/22/23 Pravastatin Sodium (PRAVACHOL TABLET) 20 Mg Tb, 40 MG PO HS, #90 TAB Prov:EFFIE GARAY MD 07/11/22 Metoprolol Tartrate (Lopressor) 25 Mg Tb, 12.5 MG PO BID, #60 TAB Prov:EFFIE GARAY MD 07/11/22 Aspirin (Aspirin Low Dose) 81 Mg Tab, 81 MG PO DAILY, #90 TAB Prov:EFFIE GARAY MD 07/11/22 Information Source: Patient Mode of Arrival: Ambulatory Past Medical History PAST MEDICAL HISTORY: Anxiety, Cancer, Depression, DM, High Lipids, HTN Surgical History: Hernia Repair Family History Family History: Reviewed,noncontributory to illness Social History Smoker: Non-Smoker Alcohol: Occasionally Drugs: Denies Drug Use Lives In: Home Was a procedure done? Was a procedure done?: No Differential Dx Considerations may include: Differential diagnosis includes but is not limited to pyelonephritis, nephrolithiasis, musculoskeletal pain, cholecystitis, DDD, other X-Ray, Labs, Meds, VS Vital Signs Date Time Temp Pulse Resp B/P (MAP) Pulse Ox O2 Delivery O2 Flow Rate FiO2 06/10/25 02:56 98.1 61 18 118/78 (91) 97 98.1 06/10/25 02:56 61 18 97 Room Air 06/09/25 21:46 99.4 74 14 137/81 96 99.4 [place] [id number] Ph: [phone] DIAGNOSTIC IMAGING Diagnostic Imaging Report : [id number] Signed PATIENT: MINERVA PEOPLES ACCT: [id number] UNIT: [id number] : 1955 LOC: ER ROOM / BED: / AGE / SEX: 70 / M ADM STATUS: REG ER SERVICE 7 ORDERING PHYSICIAN: BRITT CHUN MD PROCEDURE(s): CXR2 - CHEST TWO VIEWS ROUTINE REASON: right back pain worse w/ inspiration ORDER NUMBER(s): [id number], ACCESSION NUMBER(s): [id number] CHEST RADIOGRAPH Indication: right back pain worse w/ inspiration Technique: 2 views Comparison: 07/10/2022 FINDINGS: Lines and Tubes: None Lungs/Pleura: No focal consolidation, pleural effusion or pneumothorax. Mild scarring/atelectasis in the lung bases. Cardiomediastinum: Unremarkable. Other: No acute osseous abnormality. IMPRESSION: 1. No acute cardiopulmonary abnormality. ATED BY: IRAM HERNANDEZ MD DICTATED DATE/TIME: 06/10/25248 SIGNED BY: IRAM HERNANDEZ MD SIGNED DATE/TIME: 06/10/25248 CC: Time of 1ST Reevaluation: 03:05 Reevaluation 1ST: Unchanged Patient Education/Counseling: Need For Follow Up Family Education/Counseling: No Family Present SEPSIS Sepsis Screen Date sepsis recognized/suspect: Jun 09, 2025 Time Sepsis recognized/suspect: 2146 Recent Procedure: No On Antibiotic Therapy: No Respiratory Rate >20: No Heart Rate >90: No Temp<36 C (96.8 F) or >38.3 C: No SBP <90 or MAP <65 mmHG: No New Acute Mental Status Change: No Is the patient on CPAP, BIPAP,: No Physician Orders Chest Two Views Routine (06/10/25 02:28) Vital Signs Date Time Temp Pulse Resp B/P (MAP) Pulse Ox O2 Delivery O2 Flow Rate FiO2 06/10/25 02:56 98.1 61 18 118/78 (91) 97 98.1 06/10/25 02:56 61 18 97 Room Air 06/09/25 21:46 99.4 74 14 137/81 96 99.4 Departure 1 Departure Time of Disposition: 03:18 Impression: Primary Impression: Back pain Disposition: 01 HOME / SELF CARE / HOMELESS Condition: Stable Additional Instructions: INSTRUCCIONES DE HOLLIS DE Urgencias Instrucciones: Renay atentamente todas las instrucciones proporcionadas en corry paquete. Aunque le hayan dado el hollis del Departamento de Emergencias, esto no significa que tenga un "certificado de buena ирина". [] Hoy no se barnett realizado ningn diagnstico definitivo para gwen sntomas. Es posible que ests en proceso de desarrollar bakari enfermedad grave. Es por eso que debe regresar al servicio de urgencias sin falta si presenta algn sntoma nuevo o que empeora (especialmente si gwen sntomas incluyen dolor en el pecho, dificultad para respirar, dolor abdominal, fiebre, dolor de tejal, confusin, dificultad para fabian o caminar). Tambin es muy importante que consulte a un mdico de atencin primaria dentro de los prximos 3 a 5 hernandez para realizar un seguimiento. Si no puede conseguir bakari cheyanne, regrese al servicio de urgencias para bakari nueva evaluacin. Dolor de espalda: Instrucciones de cuidado Descripcin general En la mayora de los casos, no existe bakari causa kaitlin para el dolor de espalda. Puede estar relacionado con problemas en los msculos y ligamentos de la espalda. Tambin puede estar relacionado con problemas en los nervios, discos o huesos de la espalda. Moverse, levantar objetos, estar de pie, sentarse o dormir de forma incmoda puede tensar la espalda. La artritis es otra causa de dolor de espalda. Aunque puede doler mucho, el dolor de espalda suele mejorar por s solo en unas semanas. La mayora de las personas se recuperan en 12 semanas o menos. El uso de medidas de autocuidado, dre aplicar hielo o calor y realizar actividad ligera (dre caminar), puede ayudarle a sentirse mejor antes. El seguimiento es fundamental para ni tratamiento y seguridad. Asegrese de programar y acudir a todas gwen citas, y llame a ni mdico si tiene algn problema. Tambin es recomendable estar al tanto de los resultados de gwen pruebas y llevar bakari lista de los medicamentos que paola. Outpatient Phlebotomist puedes cuidarte en casa? Sintese o recustese en las posiciones que le resulten ms cmodas y reduzcan el dolor. Pruebe bakari de estas posiciones al acostarse: Acustese boca arriba con las rodillas dobladas y apoyadas sobre almohadas. Acustese en el suelo con las piernas apoyadas en el asiento de un sof o silla. Acustese de lado con las rodillas y las caderas dobladas y bakari almohada entre las piernas. Acustese boca abajo si esto no empeora el dolor. No se siente en la cama y evite los sofs blandos y las posturas torcidas. El reposo en cama puede ayudar a aliviar el dolor al principio, km retrasa la recuperacin. Evite el reposo en cama despus del primer da de dolor de espalda. Cambie de posicin cada 30 minutos. Si debe permanecer sentado porter largos periodos, tome descansos. Levntese y camine un poco, o recustese en bakari posicin cmoda. Pruebe a usar bakari almohadilla trmica a temperatura baja o media porter 15 a 20 minutos cada 2 o 3 horas. Pruebe con bakari ducha tibia en lugar de bakari fish sesin con la almohadilla trmica. Tambin puede probar bakari compresa de hielo porter 10 a 15 minutos cada 2 o 3 horas. Coloque un bree sd entre la compresa y la piel. Robinson los analgsicos exactamente dre se lo indiquen. Si el mdico le recet un medicamento para el dolor, tmelo segn lo prescrito. Si no est tomando un analgsico recetado, pregntele a ni mdico si puede tin rukhsana de venta olamide. Realice caminatas cortas varias veces al da. Puede empezar con caminatas de 5 a 10 minutos, 3 o 4 veces al da, y aumentar gradualmente a caminatas ms largas. Camine en superficies rosa elena y evite tony y escaleras hasta que ni espalda mejore. Regrese al trabajo y a otras actividades lo antes posible. El reposo continuo sin actividad no suele ser coley para la espalda. Para prevenir futuros nicky de espalda, realice ejercicios de estiramiento y fortalecimiento de la espalda y el abdomen. Aprenda a mantener bakari buena postura, tcnicas seguras de levantamiento de pesas y bakari mecnica corporal adecuada. Cundo debes pedir ayuda? Llame a ni mdico ahora o busque atencin mdica inmediata si: Tiene entumecimiento nuevo o que empeora en las piernas. Tiene debilidad nueva o que empeora en las piernas. ([place] podra dificultarle ponerse de pie). Pierde el control de la vejiga o los intestinos. Preste atencin a los cambios en ni ирина y asegrese de comunicarse con ni mdico si: Tienes fiebre, pierdes peso o no te sientes lyubov. No mejoras dre esperabas Crditos para el dolor de espalda: Instrucciones de cuidado Actualizado al: 2023 Autor: Personal de [employer] Junta de revisin clnica Toda la educacin de [employer] es revisada por un equipo que incluye mdicos, enfermeras, profesionales avanzados, dietistas registrados y otros profesionales de la ирина. e-Prescriptions Ibuprofen (Ibuprofen) 600 Mg Tab 1 TAB PO TID for 5 Days, #15 TAB Prov: BRITT CHUN MD 06/10/25 Acetaminophen (Acetaminophen Er) 650 Mg Tab 650 MG PO TIDPRN PRN, #15 TAB Prov: BRITT CHUN MD 06/10/25 Comments MDM: 70-YEAR-OLD MALE WITH RIGHT BACK PAIN. NO RED FLAG SIGNS OR SYMPTOMS ON EXAM OR HISTORY. PATIENT IS FELT STABLE FOR DISCHARGE HOME TO FOLLOW UP WITH THE PRIMARY CARE PROVIDER. Extensive evaluation was performed in attempt to identify or rule out: (See differential diagnosis section) The following tests were ordered, and results were reviewed by me and discussed with patient: (See diagnostic results section) The following test were independently interpreted by me: N/A I reviewed and agreed with the following test results read by other providers: Chest x-ray Decision regarding hospitalization or escalation of hospital level of care: Risks and benefits of admission for further treatment of patient's condition was considered however due to patient's stable condition patient will be discharged to follow up closely or return to care for worsening of condition or inability to follow up. Critical Care Note Critical Care Time?: No Stability Stability form required: No Heart Score Heart Score: Heart Score Response (Comments) Value History N/A 0 EKG N/A 0 Age N/A 0 Risk Factors N/A 0 Troponin N/A 0 Total 0 I personally scribed for BRITT CHUN MD ([email or web address]) on 06/10/25 at 03:36. Electronically submitted by Santana León ([email or web address]). BRITT CHUN MD Jun 10, 2025 03:21
== END 2025-06-10 04:24 | disposition home or self-care (01) ==
LOC: ER 21:40
DX: M54.6 Pain in thoracic spine (principal); I10 Essential (primary) hypertension; E11.9 Type 2 diabetes mellitus without complications; F32.A Depression, unspecified; F41.9 Anxiety disorder, unspecified; Z79.1 Long term (current) use of non-steroidal anti-inflammatories (NSAID); Z79.52 Long term (current) use of systemic steroids; Z79.82 Long term (current) use of aspirin; Z79.899 Other long term (current) drug therapy; Z98.890 Other specified postprocedural states
CPT/HCPCS: 71046